=== PATIENT | male | born 1940 | race Asian ===

== ENCOUNTER 2019-12-03 05:59 | Emergency (ER) | payer OTHER, BC ==
[2019-12-03 06:35] LABS: Absolute Lymphocytes (CBC) 1.5 K/uL (0.7-4.9); Basophils % 0.8 % (0-1.3); Hematocrit 38.7 % (39.6-49.0); Lymphocytes % 21.2 % (15.3-44.8)
[2019-12-03] MEDS ORDERED: ONDANSETRON 4 MG/2 ML VIAL ONE ×2 (06:44→07:21)
[2019-12-03] MEDS ORDERED: MORPHINE 2 MG/ML SYR ONE (06:44)
[2019-12-03] MEDS ORDERED: NA CHLORIDE 0.9% 500 ML ONE ×2 (06:44→08:02)
[2019-12-03 06:59] LABS: Albumin 2.8 g/dL (3.4-5.0); Bilirubin Direct 0.1 mg/dL (0-0.2); Bilirubin Total 0.4 mg/dL (0.2-1.0); Potassium 3.9 mmol/L (3.5-5.1); Protein, Total 8.9 g/dL (6.4-8.2)
--- NOTE | 2019-12-03 07:27 | RAD REPORT ---
EXAM DESCRIPTION: CT - Abdomen Pelvis W Contrast - 12/03/2019 7:03 am CLINICAL HISTORY: Abdominal pain COMPARISON: none. TECHNIQUE: Computed axial tomography of the abdomen pelvis was obtained. 100 cc Isovue-300 was admin istered intravenously. Oral contrast was not requested which limits evaluation of bowel. All CT scans are performed using dose optimization technique as appropriate and may include automated exposure control or mA/KV adjustment according to patient size. FINDINGS: The liver, spleen, pancreas, and adrenals appear unremarkable. Small bilateral renal cysts Gallstones. No gallbladder wall thickening. Left lower lobe of bronchiectasis. There is no evidence of diverticulitis. Atherosclerotic changes. Internal radiation beams surround th e prostate gland. Small inguinal hernias contain fat IMPRESSION: Cholelithiasis without evidence cholecystitis
[2019-12-03] MEDS ORDERED: PROMETHAZINE INJ 25 MG/ML AMP ONE (08:02)
[2019-12-03 10:13] LABS: Urine Blood 1+ (NEG); Urine Glucose NEGATIVE (NEG); Urine Protein 1+ (NEG); Urine Specific Gravity 1.015 (1.005-1.030); Urine pH 6.5 (5.0-7.0)
[2019-12-03 11:11] LABS: Urine Bacteria <20 /HPF (NONE SEEN); Urine Culture Reflex Order NOT NEEDED; Urine RBC <5 /HPF (NONE SEEN)
--- NOTE | 2019-12-03 11:18 | ER ---
Nurse's Notes [facility] Name: Cory Billings Age: 79 yrs Sex: Male : 1940 Arrival Date: 12/03/2019 Time: 06:02 Bed 5 Private MD: Diagnosis: Low back pain;Nausea and vomiting Presentation: 12/02 06:17 Chief complaint: Patient states: LOWER BACK PAIN, LEFT SIDE, RADIATES TO LEFT GROIN, rv FOR THREE DAYS. WITH NAUSEA AND DIZZINESS. NORMAL URINE. Coronavirus screen: Client denies travel out of the [place] in the last 14 days. At this time, the client does not indicate any symptoms associated with coronavirus-19. Ebola Screen: No symptoms or risks identified at this time. Initial Sepsis Screen: Does the patient meet any 2 criteria? No. Patient's initial sepsis screen is negative. Does the patient have a suspected source of infection? No. Patient's initial sepsis screen is negative. Risk Assessment: Do you want to hurt yourself or someone else? Patient reports no desire to harm self or others. Onset of symptoms was November 29, 2019. 06:17 Method Of Arrival: Ambulatory rv 06:17 Acuity: NATASHA 3 rv Triage Assessment: 06:20 General: Appears uncomfortable, Behavior is calm, cooperative. Pain: Complains of pain rv in left low back Pain radiates to left femoral area. EENT: No signs and/or symptoms were reported regarding the EENT system. Neuro: Level of Consciousness is awake, alert, obeys commands, Oriented to person, place, time, situation. Cardiovascular: Patient's skin is warm and dry. Respiratory: Airway is patent. GI: Abdomen is flat, distended, Reports nausea. Derm: Skin is intact. Musculoskeletal: Circulation, motion, and sensation intact. Swelling absent. Historical: - Allergies: 06:20 No Known Allergies; rv - PMHx: 06:20 Asthma; PROSTATE CA; rv - PSHx: 06:20 Hernia repair; rv - Immunization history:: Adult Immunizations up to date. - Social history:: Smoking status: Patient/guardian denies using tobacco, the patient reports quitting approximately 40 years ago. Screenin:21 Abuse screen: Denies threats or abuse. Denies injuries from another. Nutritional rv screening: No deficits noted. Tuberculosis screening: No symptoms or risk factors identified. Fall Risk None identified. Assessment: 07:00 General: RECD REPORT FROM HOLGER MARTINEZ. 79YO AM P/W BACK PAIN, CURRENTLY IN AC. UOP bp PENDING. 08:09 Reassessment: IVF INFUSING, UOP PENDING. bp 09:50 Reassessment: PT RESTING QUIETLY, S/S RELIEVED. bp 11:04 Reassessment: DISPO PENDING MICRO RESULTS. PT STATES RELIEF OF S/S. bp 11:49 Reassessment: PT D/C HOME AMBULATORY WITH SPOUSE. DX WITH BACK PAIN. bp Vital Signs: 06:17 BP 145 / 86; Pulse 108; Resp 18; Temp 98.2; Pulse Ox 95% on R/A; Weight 81.65 kg; rv Height 5 ft. 10 in. (177.80 cm); 06:47 BP 143 / 80; Pulse 89; Resp 21; Pulse Ox 95% on R/A; rv 08:08 BP 136 / 85; Pulse 95; Resp 16; Pulse Ox 92% ; bp 09:30 BP 135 / 85; Pulse 90; Resp 16; Pulse Ox 96% ; bp 11:04 BP 138 / 83; Pulse 95; Resp 17; Pulse Ox 92% ; bp 11:49 BP 144 / 95; Pulse 93; Resp 17; Temp 98.2; Pulse Ox 94% ; bp 06:17 Body Mass Index 25.83 (81.65 kg, 177.80 cm) rv ED Course: 06:02 Patient arrived in ED. ag3 06:03 Manjeet Miguel, JUAN is Primary Nurse. rv 06:08 Winston Vivar NP is PHCP. pm1 06:08 Ray Britt MD is Attending Physician. pm1 06:19 Triage completed. rv 06:21 Arm band placed on right wrist. Patient placed in the treatment room, on a stretcher, rv Patient notified of wait time. 06:21 Patient has correct armband on for positive identification. Pulse ox on. NIBP on. rv 06:30 Inserted saline lock: 20 gauge in right antecubital area, using aseptic technique. rv Blood collected. 06:30 Initial lab(s) drawn, by ut, sent to lab. rv 07:03 CT Abd/Pelvis - IV Contrast Only In Process Unspecified. EDMS 09:48 Primary Nurse role handed off by Manjeet Miguel, JUAN bp 09:48 Aime Kessler, RN is Primary Nurse. bp 11:52 No provider procedures requiring assistance completed. IV discontinued, intact, bp bleeding controlled. Administered Medications: 06:40 Drug: NS 0.9% 500 ml Route: IV; Rate: bolus; Site: right antecubital; rv 11:54 Follow up: IV Status: Completed infusion; IV Intake: 500ml bp 06:40 Drug: Zofran (Ondansetron) 4 mg Route: IVP; Site: right antecubital; rv 07:15 Follow up: Response: Nausea is decreased bp 06:40 Drug: morphine 2 mg Route: IVP; Site: right antecubital; rv 07:15 Follow up: Response: Pain is decreased bp 07:30 Drug: Zofran (Ondansetron) 4 mg Route: IVP; Site: right antecubital; bp 08:07 Follow up: Response: No adverse reaction bp 07:50 Drug: NS 0.9% 500 ml Route: IV; Rate: bolus; Site: right antecubital; bp 11:53 Follow up: IV Status: Completed infusion bp 07:50 Drug: Phenergan 12.5 mg Route: IVP; Site: right antecubital; bp 08:07 Follow up: Response: Nausea is decreased bp Intake: 11:54 IV: 500ml; Total: 500ml. bp Outcome: 11:18 Discharge ordered by MD. pm1 11:51 Discharged to home ambulatory, with family. bp 11:51 Condition: stable 11:51 Discharge instructions given to patient. 11:56 Patient left the ED. bp Signatures: Dispatcher [employer] EDMS Winston Vivar NP [employer] CLERK pm1 Aime Kessler, RN RN bp Mikaela Scott kw1 Manjeet Miguel RN RN rv Ana Cristina Zambrano ag3 Corrections: (The following items were deleted from the chart) 06:26 06:25 Radiology exam delayed due to IV insertion attempt and/or patient not having kw1 appropriate IV at this time. kw1
--- NOTE | 2019-12-03 11:18 | EDPHYS ---
Physician Documentation [facility] Name: Cory Billings Age: 79 yrs Sex: Male : 1940 Arrival Date: 12/03/2019 Time: 06:02 Bed 5 Private MD: ED Physician Ray Britt HPI: 12/02 07:01 This 79 yrs old Male presents to ER via Ambulatory with complaints of Back Pain, pm1 Nausea, Dizziness. 07:01 The patient presents with pain that is acute, with no known mechanism of injury. The pm1 symptoms are located in the left low back. Onset: The symptoms/episode began/occurred 3 day(s) ago. The pain radiates to the left lower quadrant. Associated signs and symptoms: Pertinent positives: nausea, vomiting, Dizziness, Pertinent negatives: chest pain, constipation, dysuria, fever, headache, hematuria, shortness of breath. The problem was sustained from unknown cause. Modifying factors: The patient symptoms are alleviated by remaining still, specific position, the patient symptoms are aggravated by movement. Severity of symptoms: in the emergency department the symptoms are actually worse. The patient has not recently seen a physician. Historical: - Allergies: 06:20 No Known Allergies; rv - PMHx: 06:20 Asthma; PROSTATE CA; rv - PSHx: 06:20 Hernia repair; rv - Immunization history:: Adult Immunizations up to date. - Social history:: Smoking status: Patient/guardian denies using tobacco, the patient reports quitting approximately 40 years ago. ROS: 07:01 Constitutional: Negative for fever, chills, and weight loss, Cardiovascular: Negative pm1 for chest pain, palpitations, and edema, Respiratory: Negative for shortness of breath, cough, wheezing, and pleuritic chest pain. 07:01 : Negative for injury, bleeding, discharge, and swelling, MS/Extremity: Negative for injury and deformity, Skin: Negative for injury, rash, and discoloration, Neuro: Negative for headache, weakness, numbness, tingling, and seizure. 07:01 Abdomen/GI: Positive for nausea and vomiting, Negative for diarrhea, constipation. 07:01 Back: Positive for flank pain, on the left. Exam: 07:01 Constitutional: This is a well developed, well nourished patient who is awake, alert, pm1 and in no acute distress. Head/Face: Normocephalic, atraumatic. 07:01 Abdomen/GI: Soft, non-tender, with normal bowel sounds. No distension or tympany. No guarding or rebound. No evidence of tenderness throughout. 07:01 Skin: Warm, dry with normal turgor. Normal color with no rashes, no lesions, and no evidence of cellulitis. MS/ Extremity: Pulses equal, no cyanosis. Neurovascular intact. Full, normal range of motion. 07:01 Cardiovascular: Exam negative for acute changes, Rate: normal, Rhythm: regular, Pulses: no pulse deficits are appreciated. 07:01 Respiratory: Exam negative for acute changes, respiratory distress, shortness of breath. 07:01 Back: pain, that is mild, of the left low back. 07:01 Neuro: Exam negative for acute changes, Orientation: is normal, Mentation: is normal, Motor: is normal, moves all fours. Vital Signs: 06:17 BP 145 / 86; Pulse 108; Resp 18; Temp 98.2; Pulse Ox 95% on R/A; Weight 81.65 kg; rv Height 5 ft. 10 in. (177.80 cm); 06:47 BP 143 / 80; Pulse 89; Resp 21; Pulse Ox 95% on R/A; rv 08:08 BP 136 / 85; Pulse 95; Resp 16; Pulse Ox 92% ; bp 09:30 BP 135 / 85; Pulse 90; Resp 16; Pulse Ox 96% ; bp 11:04 BP 138 / 83; Pulse 95; Resp 17; Pulse Ox 92% ; bp 11:49 BP 144 / 95; Pulse 93; Resp 17; Temp 98.2; Pulse Ox 94% ; bp 06:17 Body Mass Index 25.83 (81.65 kg, 177.80 cm) rv MDM: 06:09 Patient medically screened. pm1 07:06 Data reviewed: vital signs. Data interpreted: Pulse oximetry: on room air is 95 %. pm1 Interpretation: normal. 11:16 Counseling: I had a detailed discussion with the patient and/or guardian regarding: the pm1 historical points, exam findings, and any diagnostic results supporting the discharge/admit diagnosis, lab results, radiology results, the need for outpatient follow up, to return to the emergency department if symptoms worsen or persist or if there are any questions or concerns that arise at home. 12/02 06:19 Order name: Basic Metabolic Panel; Complete Time: 07:05 pm1 12/02 06:19 Order name: CBC with Diff; Complete Time: 06:56 pm1 12/02 06:19 Order name: Hepatic Function; Complete Time: 07:05 pm1 12/02 06:19 Order name: Lipase; Complete Time: 07:05 pm1 12/02 06:19 Order name: Urine Microscopic Only; Complete Time: 11:15 pm1 12/02 06:58 Order name: CREATININE WHOLE BLOOD; Complete Time: 07:05 EDMS 12/02 06:19 Order name: CT Abd/Pelvis - IV Contrast Only; Complete Time: 07:30 pm1 12/02 09:59 Order name: Urine Dipstick--Ancillary (enter results); Complete Time: 10:17 bd 12/02 06:19 Order name: IV Saline Lock; Complete Time: 06:46 pm1 12/02 06:19 Order name: Labs collected and sent; Complete Time: 06:46 pm1 12/02 06:19 Order name: Urine Dipstick-Ancillary (obtain specimen); Complete Time: 10:14 pm1 Administered Medications: 06:40 Drug: NS 0.9% 500 ml Route: IV; Rate: bolus; Site: right antecubital; rv 11:54 Follow up: IV Status: Completed infusion; IV Intake: 500ml bp 06:40 Drug: Zofran (Ondansetron) 4 mg Route: IVP; Site: right antecubital; rv 07:15 Follow up: Response: Nausea is decreased bp 06:40 Drug: morphine 2 mg Route: IVP; Site: right antecubital; rv 07:15 Follow up: Response: Pain is decreased bp 07:30 Drug: Zofran (Ondansetron) 4 mg Route: IVP; Site: right antecubital; bp 08:07 Follow up: Response: No adverse reaction bp 07:50 Drug: NS 0.9% 500 ml Route: IV; Rate: bolus; Site: right antecubital; bp 11:53 Follow up: IV Status: Completed infusion bp 07:50 Drug: Phenergan 12.5 mg Route: IVP; Site: right antecubital; bp 08:07 Follow up: Response: Nausea is decreased bp Disposition: 12/03/19 11:18 Discharged to Home. Impression: Low back pain, Nausea and vomiting. - Condition is Stable. - Discharge Instructions: Back Pain, Adult, Dehydration, Elderly, Nausea and Vomiting, Adult, Rehydration, Elderly. - Prescriptions for Tramadol 50 mg Oral Tablet - take 1 tablet by ORAL route every 8 hours as needed; 12 tablet. promethazine 25 mg Oral Tablet - take 1 tablet by ORAL route every 6 hours As needed; 20 tablet. - Medication Reconciliation Form, Thank You Letter, Antibiotic Education, Prescription Opioid Use form. - Follow up: Private Physician; When: 2 - 3 days; Reason: Recheck today's complaints, Continuance of care, Re-evaluation by your physician. Follow up: Emergency Department; When: As needed; Reason: Worsening of condition. - Problem is new. - Symptoms have improved. Addendum: 12/05/2019 07:09 Co-signature as Attending Physician, Ray Britt MD. r n Signatures: Dispatcher [employer] EDMS Ray Britt MD MD rn Winston Vivar, S[employer]ER pm1 Aime Kessler RN RN bp Vicente, Ronaldo, RN RN rv Corrections: (The following items were deleted from the chart) 12/02 11:16 07:06 Counseling: I had a detailed discussion with the patient and/or guardian pm1 regarding: the historical points, exam findings, and any diagnostic results supporting the discharge/admit diagnosis, lab results, radiology results, the need for outpatient follow up, to return to the emergency department if symptoms worsen or persist or if there are any questions or concerns that arise at home, pm1 11:56 11:18 12/03/2019 11:18 Discharged to Home. Impression: Low back pain; Nausea and bp vomiting. Condition is Stable. Forms are Medication Reconciliation Form, Thank You Letter, Antibiotic Education, Prescription Opioid Use. Follow up: Private Physician; When: 2 - 3 days; Reason: Recheck today's complaints, Continuance of care, Re-evaluation by your physician. Follow up: Emergency Department; When: As needed; Reason: Worsening of condition. Problem is new. Symptoms have improved. pm1
[2019-12-03 12:01] VITALS: TEMP 98.2
[2019-12-03 12:07] VITALS: BP 144/95; O2SAT 94
== END 2019-12-03 11:56 | disposition home or self-care (01) ==
LOC: ER 05:59
DX: R11.2 Nausea with vomiting, unspecified (principal)
CPT/HCPCS: 96361; 85025; 80048; 36415; 82565; 80076; 83690; 74177; 96375; 96374; 99284; Q9967; J2550; J2270; J7040 ×2; J2405 ×2; 81003; 81015